=== PATIENT | female | born 1955 | race Caucasian/White ===

== ENCOUNTER 2016-09-26 12:05 | Emergency (ER) | payer OTHER ==
[~2016-09-26] VITALS: Ht 157.5 cm; Wt 52.3 kg
[~2016-09-26 12:05] MED LIST: ALBUTHFA INH; ALPR1TAB2 PO; CETI10TA PO; CITA20TA2 PO; FLONASE; IMI100 PO; OXYC5TAB72 PO; QVAR INH; ZAN150T PO; [UNRECOGNIZED DRUG - CODE] PO
[2016-09-26 12:11] VITALS: BP 122/82; PULSE 77; RESP 18; O2SAT 98
--- NOTE | 2016-09-26 12:31 | ED.REPORT ---
HPI-Back Pain 40 and Over Date of Service Sep 26, 2016 ED Provider: Dr. Solo Pt is a 61 y/o female w/ a hx of chronic back pain secondary to DDD presenting to the ED c/o exacerbation of chronic back pain onset 3 days ago. This pain is the same locations and character of her chronic back pain. Pt denies fever, chills, weakness/numbness/tingling, urinary or bladder incontinence, nausea, vomiting, dysuria. There has been no recent trauma. The patient was previously on oxycodone for her chronic pain and was weaned off of it 2 months ago. Nursing Notes Stated Complaint: BACK PAIN Chief Complaint: Back Pain or Injury Nursing Notes Reviewed: Yes Allergies: Coded Allergies: codeine (Verified Allergy, Mild, N/V, 09/26/16) amoxicillin (Unverified Allergy, Unknown, 09/26/16) amoxicillin trihydrate (Unverified Adverse Reaction, Intermediate, NVD, Abdominal Cramps, Itching, 09/26/16) potassium clavulanate (Unverified Adverse Reaction, Intermediate, NVD, Abdominal Cramps, Itching, 09/26/16) Scheduled Alprazolam-Expunged Drug, Do Not Renew! (Alprazolam-Expunged Drug, Do Not Renew! ) 1 Mg Tablet 1 MG PO BID Beclomethasone-Expunged Drug, Do Not Renew! (Renl-79-Fmsnbpar Drug, Do Not Renew !) 40 Mcg Puff 2 PUFF INH BID SHAKE WELL*RINSE MOUTH AFTER USE* Cetirizine-Expunged Drug, Do Not Renew! (Cetirizine-Expunged Drug, Do Not Renew! ) 10 Mg Tablet 1 TAB PO DAILY Citalopram-Expunged Drug, Do Not Renew! (Citalopram-Expunged Drug, Do Not Renew! ) 20 Mg Tablet 40 MG PO DAILY Fluticasone-Expunged Drug, Do Not Renew! (Flonase-Expunged Drug, Do Not Renew!) 120 Sprays/16 Gm Aero 2 SPR NA DAILY IN EACH NOSTRIL Propranolol-Expunged Drug, Do Not Renew! (Propranolol [place]-Expunged Drug, Do Not Renew!) 80 Mg Capcr 80 MG PO DAILY Ranitidine 150 MG Tablet (Zantac 150 MG Tablet) 150 Mg Tab 1 TAB PO BID Sumatriptan-Expunged Drug, Do Not Renew! (Imitrex-Expunged Drug, Do Not Renew!) 100 Mg Tab 100 MG PO UD Scheduled PRN Albuterol-Expunged Drug, Do Not Renew! (Albuterol-Expunged Drug, Do Not Renew!) 90 Mcg/Puff Hfa.aer.ad 2 PUFF INH Q4-6H PRN PRN For Wheezing or Shortness of Breath Cyclobenzaprine (Cyclobenzaprine) 5 Mg Tablet 5 MG PO HS PRN PRN Spasm Ibuprofen (Ibuprofen) 800 Mg Tablet 800 MG PO TID PRN PRN For Pain oxyCODONE-Expunged, Do Not Renew! (oxyCODONE-Expunged, Do Not Renew!) 5 Mg Tablet 5-10 MG PO Q8 PRN PRN General Time Seen by MD: 12:30 Chief Complaint Back pain Hx Obtained From: Patient Arrived By: Walk-in Sudden in Onset?: No Onset Occurred: 3 days ago Symptom Duration: Since onset Location: : Perispinal lumbar Quality: Painful Severity: Current: Moderate Severity: Maximum: Moderate Recent Healthcare: Previous diagnosis Similar Sx Previous: Yes Past Medical History Past Medical History Chronic back pain secondary to DDD Hypertension COPD Asthma GERD Arthritis DM Depression Anxiety Past Surgical History Appendectomy Hysterectomy Smoking History Current Every Day Smoker, Light Tobacco Smoker Social History Alcohol Use: "Social" Drug Use: THC Ambulatory Status Independent Review of Systems Constitutional: Denies: Chills, Fever GI: Denies: Abdominal pain, Nausea, Vomiting Female: Denies: Dysuria, Flank pain Musculoskeletal: Reports: Back pain, Lumbar pain Neurologic: Denies: Bladder dysfunction, Bowel dysfunction, Numbness, Weakness Complete sys rev & neg: except as marked. Physical Exam Initial Vital Signs Vital Signs (First) Date Time Temp Pulse Resp B/P Pulse Ox O2 Delivery O2 Flow Rate FiO2 09/26/16 12:11 36.4 77 18 122/82 98 Room Air Initial VS: Reviewed, Vital signs normal Head / Eyes: Atraumatic, Normocephalic ENT: Mucous membranes moist, Conjunctiva normal, No scleral icterus Neck: Supple, Full range of motion Extremities: Vascular intact, Neuro intact, No swelling Skin: Warm, Dry, No cyanosis Psychiatric: Mood/affect normal, Behavior normal, Normal thought content General/Constitutional: Awake, Alert, No acute distress, Cooperative, Not toxic appearing Respiratory / Chest: Breath sounds NL, Breath sounds = bilat, No respiratory distress, No rales, No rhonchi, No wheezing Cardiovascular: Heart rate NL, Regular rhythm, Heart sounds NL, No murmurs Abdomen: Atraumatic, Soft, Non-tender Back: No CVA tenderness Diffuse lumbar back tenderness Neurologic: Oriented X3, Speech NL, No motor deficits, No sensory deficits Interpretation & Diagnostics Lab Results Interpretation Test 09/26/16 12:35 Hold Urine Received (Received) Re-Eval/Medical Decision Med Decision/Clinical Course 61-year-old female history of chronic low back pain presenting with an acute exacerbation of her typical chronic low back pain. No red flag symptoms. This is typical of her chronic exacerbations. She denies any recent trauma. She denies any infectious symptoms. Her urine is negative for infection. Her neurological exam is normal. She has diffuse low back tenderness. She was given Toradol with improvement in her symptoms. She is discharged with NSAIDs and muscle relaxers when necessary. Follow up with primary doctor. Return precautions given. Re-Evaluation/Progress : Time of Eval: 12:52 Re-Evaluation/Progress Note: Pt rechecked. Informed pt of plan for discharge. Pt understands and agrees with plan for discharge. F/U instructions and RTER warnings given. All questions addressed. Counseled Regarding: Diagnosis, Need for follow-up, When/why to return to ED Discharge & Departure Impression: Primary Impression: Exacerbation of chronic back pain Disposition: Home Discharge Condition All VS Reviewed: Yes Condition: Improved Patient Instructions: Acute Low Back Pain (ED) Additional Instructions: The urine showed no sign of infection. Take Ibuprofen 800 mg every 8 hours as needed for pain and cyclobenzaprine as directed for spasming pain. Return to the emergency department if you experience bowel or bladder incontinence, numbness/weakness/tingling of your legs, fever, persistent vomiting, severe abdominal pain, or for other concerning symptoms. Follow-up with your primary care doctor to discuss chronic pain management. Referrals: Mary Friedman PA-C (PCP) Scribe Attestation Portions of this note were transcribed by Alfredito Cuevas. I, Dr. Solo personally performed the history, physical exam and medical decision-making; I reviewed and confirmed the accuracy of the information in the transcribed note. copies to: Mary Friedman PA-C, Ben M MD Sep 26, 2016 12:31 ALFREDITO CUEVAS Sep 26, 2016 12:47
[2016-09-26] MEDS ORDERED: CYCL5TAB PO (12:48)
[2016-09-26] MEDS ORDERED: IBUP800T28 PO (12:48)
[2016-09-26 13:28] VITALS: BP 139/85; PULSE 72; RESP 20; O2SAT 100
== END 2016-09-26 13:28 | disposition home or self-care (01) ==
LOC: SED 12:05
DX: M54.5 Low back pain (principal); I10 Essential (primary) hypertension; J45.909 Unspecified asthma, uncomplicated; K21.9 Gastro-esophageal reflux disease without esophagitis; M51.36 Other intervertebral disc degeneration, lumbar region; E11.9 Type 2 diabetes mellitus without complications; F12.10 Cannabis abuse, uncomplicated; F17.200 Nicotine dependence, unspecified, uncomplicated; Z90.89 Acquired absence of other organs; Z90.710 Acquired absence of both cervix and uterus; Z79.51 Long term (current) use of inhaled steroids; Z88.5 Allergy status to narcotic agent; Z88.0 Allergy status to penicillin
CPT/HCPCS: 96372; 99284; J1885

== ENCOUNTER 2016-10-26 09:14 | Inpatient (IN) | payer OTHER, MEDICAID ==
[2016-10-26] VITALS (7 sets, daily range): BP systolic 91–153; BP diastolic 55–86; PULSE 77–115; RESP 20–24; O2SAT 94–100
[~2016-10-26] VITALS: Ht 162.6 cm; Wt 54.1 kg
[~2016-10-26 09:14] MED LIST changes: +CYCL5TAB PO; +IBUP800T28 PO
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
[2016-10-26 10:22] LABS: BASOPHILS % (AUTO) 0.6 % (0-3); EOSINOPHILS % (AUTO) 1.1 % (0-5); MONOCYTES % (AUTO) 9.4 % (4-12); Mean Corpuscular Hemoglobin 29.6 pg (27.0-35.0); Mean Corpuscular Volume 81.1 fL (81-100); Platelet Count 234 bil/L (150-400)
[2016-10-26] MEDS ORDERED: Propranolol LA 80 mg ER24 Capsule PO ONE (10:35)
--- NOTE | 2016-10-26 11:42 | DRSVH ---
PROCEDURE: X-RAY CHEST ONE VIEW, PORTABLE ([id number]) INDICATIONS: smoker, severe hyponatremia TECHNIQUE: One view of the chest was acquired. COMPARISON: [facility], CR, XR CHEST 2VW, 12/24/2014, 12:17. FINDINGS: Surgical changes and devices: None. Lungs and pleura: No pleural effusions or pneumothorax. There is hyperinflation of the lungs with f lattening of the hemidiaphragms compatible with COPD. Lungs are clear without acute consolidation. Mediastinum: Mediastinal contours appear normal. Heart size is normal. Bones and chest wall: No suspicious bony lesions. Overlying soft tissues appear unremarkable. IMPRESSION: 1. Findings compatible with COPD without definite acute changes. Dictated by: Richard Fleming M.D. on 10/26/2016 at 11:39 Approved by: Richard Fleming M.D. on 10/26/2016 at 11:41
[2016-10-26 11:43] LABS: APPEARANCE,URINE HAZY (CLEAR,HAZY); COLOR,URINE YELLOW (YELLOW); OCCULT BLOOD,URINE NEGATIVE (NEGATIVE); UROBILINOGEN,URINE NORMAL (NORMAL)
[2016-10-26] MEDS ORDERED: 0.9% Sodium Chloride 1,000 ML IV SCH ×2 (12:07→12:55)
[2016-10-26] MEDS ORDERED: Ondansetron 2 mg/mL 2 mL Inj IVPUSH PRN (12:10)
[2016-10-26] MEDS ORDERED: Polyethylene Glycol (PEG) 17 Gm Powder PO PRN (12:10)
[2016-10-26] MEDS ORDERED: Alum-Mag Hydrox-Simeth 30 mL Suspension PO PRN (12:10)
[2016-10-26] MEDS ORDERED: 0.9% Sodium Chloride 1,000 ML IV ONE (12:55)
[2016-10-26] MEDS ORDERED: ALBU8.5H2 INHALATION (13:58)
[2016-10-26] MEDS ORDERED: BECL8.7A6 INHALATION (13:59)
[2016-10-26] MEDS ORDERED: CITA40TA13 PO (14:00)
[2016-10-26] MEDS ORDERED: CETI-343 PO (14:00)
[2016-10-26] MEDS ORDERED: RANI150T11 PO (14:01)
[2016-10-26] MEDS ORDERED: FLUT16SP NS (14:01)
[2016-10-26] MEDS ORDERED: IMI100 PO (14:02)
--- NOTE | 2016-10-26 14:06 | CONS ---
[address] [address] CONSULTATION REPORT PATIENT: VICTORINO DIAMOND : 1955 MR#: [id number] ADMIT: 10/26/2016 JOB ID: [id number] DATE OF SERVICE: HISTORY: The patient is a 63-year-old white female, who was admitted to [facility] via the emergency department for suicidal ideation. During her evaluation, she was found to have a sodium of 114 and renal consultation is being sought for further evaluation of her hyponatremia. The patient has an extensive psychiatric history and has not been on any of her psychiatric medications for about a week. She states that she has been drinking at least a six-pack of beer a day and has also had very little to eat. She complains of thirst but denies any nausea, vomiting, or diarrhea. I do need to add that she is somewhat of an inconsistent historian. She denies use of any nonsteroidal anti-inflammatories and denies any current history of any headache, visual disturbances, or shortness of breath. She denies any chest pain, but states that she does have some cough and wheezing secondary to COPD. She also relates a history of hepatitis C but has not been treated for this. She has not taken any nonsteroidals recently and states that she is not on any diuretics. There is no history of any skin rashes or arthralgias. In the emergency department, her sodium was 114, urine sodium was 23 with urine osmolarity of 185. As noted above, her history and some of her information is not consistent with what is in the patient's chart. She states that she has a history of diabetes but is unsure as to whether she takes any medication for this. I do not see any diabetic medications in her medication list. She denies a history of any prior renal problems, but when questioned, she states that she has had hematuria and proteinuria. Her urinalysis did not support this. She denies any history of any frequent urinary tract infections or renal lithiasis. As noted above, she has a history of hepatitis C but this has not been treated. There is no history of any rheumatoid arthritis or lupus. She does state that she does have hypertension, and I see were she has, in the past, been on propranolol. PAST MEDICAL HISTORY: Significant for extensive psychiatric history and current suicidal ideations, hypertension, COPD, GERD. However, she denies taking any proton pump inhibitors, osteoarthritis, anxiety, depression, and hepatitis C. There is a questionable history of diabetes, but she states that she does not take any medication for this, and in the emergency department, her glucose was 82. PAST SURGICAL HISTORY: Significant for an appendectomy, hysterectomy, and for what sounds like a lysis of adhesions. ALLERGIES: She states that she is allergic to: 1. CODEINE. 2. AMOXICILLIN. 3. AUGMENTIN. SOCIAL HISTORY: She smokes less than a pack a day of cigarettes and states that she drinks a six-pack of beer a day. She states she does not drink any hard liquor or take any drugs or marijuana. FAMILY HISTORY: Remarkable for diabetes, hypertension, coronary artery disease, and stroke. MEDICATIONS: At time of my evaluation include alprazolam, Qvar, cetirizine, citalopram, Flonase nasal spray, propranolol, ranitidine, and sumatriptan as needed. As noted above she has not taken any of these medications for at least a week. REVIEW OF SYSTEMS: As detailed above in the history of present illness. PHYSICAL EXAMINATION: Revealed a thin, somewhat ill-appearing, 61-year-old white female, who was awake and alert and able to answer simple questions, though she gave somewhat inconsistent answers. Her blood pressure was 153/80 with a pulse rate of 115. HEENT examination is remarkable for bitemporal wasting, and dry mucous membranes. Sclerae, cornea, conjunctivae, pupils, and extraocular muscles were within normal limits. Neck is supple without adenopathy, thyromegaly, or jugular venous distention. Lungs are clear to auscultation. Heart is regular and rhythmical with a soft systolic murmur. Abdomen is soft, without any tenderness, rebound, guarding, masses or hepatosplenomegaly. Extremities do not show any evidence of any clubbing, cyanosis, or edema. Skin turgor is diminished and there is no evidence of any rashes. I did not appreciate any joint effusions or joint erythema. LABORATORY EXAMINATION: This morning, her white count is 8.3, hemoglobin 13.8, hematocrit 37.8. Red cell indices, platelet count and differential were normal. Her sodium is 114, potassium 4.4, chloride of 77, bicarbonate 19. BUN and creatinine were 6 and 0.49 respectively. Liver function studies were remarkable for a slightly elevated ALT at 51 and her glucose is 82. TSH is 2.61. Urinalysis was remarkable for specific gravity 1.010, pH was 6. Tests for ketones were positive. However tests for protein, glucose, and blood were negative. Microscopic was unremarkable. Her urine sodium was 23 with urine osmolarity of 185. IMPRESSION: 1. Dehydration. 2. Hyponatremia secondary to number one. 3. Ketoacidosis secondary to starvation and possible alcoholic ketoacidosis. 4. Hypertension with hypertensive heart disease. RECOMMENDATION: I would recommend starting her on normal saline at 100 mL/h, and continue to monitor her electrolytes. In light of her recent heavy ethanol use, I would strongly recommend CIWA protocol and closely follow her potassium, magnesium, and phosphorus. I would also like to get an echocardiogram. In light of her hypertension and history of use of beta blockers, I would recommend labetalol mg twice a day to start off Once again, I would like to thank you for allowing me to participate in the care of this most pleasant and interesting patient. I will be following her closely with you.
[2016-10-26] MEDS: 0.9% Sodium Chloride 1,000 ML IV SCH (14:40)
[2016-10-26] MEDS: HYDROcodone-APAP 5-325 mg Tablet PO PRN ×3 (14:42→21:11)
[2016-10-26] MEDS ORDERED: Albuterol 2.5 mg/3 mL Inhalation Solution NEB PRN (15:40)
--- NOTE | 2016-10-26 16:44 | PCM.HPMED ---
Subjective Date of Service Oct 26, 2016 Primary Provider: Admitting Physician: Sidney Pang MD Primary Care Physician: Caroline Marshall MD Attending Physician: Sidney Pang MD Chief Complaint: Suicidal ideation History of Present Illness: Pt is a 61-year-old female with a medical history significant for anxiety/ depression, history of opioid dependence, untreated hepatitis C, COPD, and diabetes type II the ED with the thought of self-harm. Per patient, she states wanting to jump off the bridge due to increased stressor at what sounds like her assisted since yesterday. She denies overdosing on any of her medication, however does states that she take double the amount of an unknown sleeping medication. Patient has hx of one suicidal attempt by on trazodone over 20 years ago. Patient additionally drinks 5-6 beers daily for the past +6 months. Patient states that she has started drinking about 6 months ago after she was weaned off of her opioids. Patient reports that she has not been taking her antidepressive medication for the past week, unable to refill. She endorses that she has been feeling significantly depressed, low appetite, poor by mouth intake. On interview, patient also reports some mild bilateral headache, dizziness, nausea, and palpitation. No chest pain, shortness of breath or abdominal pain however. Interestingly, patient reported increasing thirst on review of system. In the ED, patient found to have critical labs sodium of 114 with random urine 23 and urine osmole and 185. Nephrology was consulted, and recommend normal saline at 100 mL an hour for dehydration. Patient admitted on the floor for suicidal ideation and hyponatremia, need close close monitoring. Review of Systems: A comprehensive review of systems was conducted with the patient and found to be negative except as above in the History of Present Illness. Allergies Coded Allergies: codeine (Verified Allergy, Mild, N/V, 09/26/16) amoxicillin (Unverified Allergy, Unknown, 09/26/16) amoxicillin trihydrate (Unverified Adverse Reaction, Intermediate, NVD, Abdominal Cramps, Itching, 09/26/16) potassium clavulanate (Unverified Adverse Reaction, Intermediate, NVD, Abdominal Cramps, Itching, 09/26/16) Home Medications Albuterol HFA 2 puffs every 4 hours when necessary Qvar 8.7 g 2 puffs twice a day Cetirizine 10 mg daily Citalopram 40 mg daily Cyclobenzaprine 5 mg at bedtime Fluticasone 16 g, to spray nasal cannula Ranitidine 150 mg by mouth twice a day Sumatriptan 100 mg daily PMH Severe COPD Nicotine dependent, long-term smoker Chronic malnutrition and cachexia secondary to Hepatitis C genotype 1A, untreated Dyslipidemia Prediabetes Osteoporosis History of bowel obstruction Benign essential tremor History of opioid dependence Depression/anxiety Surgical History KENDY, BSO for DU B Laparotomy with lysis of dictation Appendectomy Family History Family history of coronary artery disease Father with history of embolic stroke Mother with a history of COPD and Parkinson's disease Social History Hx Alcohol Use: Yes (last drink 10/25/16) Alcoholic Drinks Per Day: 6-8 drinks per week Hx Substance Use: Yes (rare marijuana use) Hx Tobacco Use: Yes (1/2 pack daily) Smoking Status: Current Every Day Smoker Exam Vital Signs Vital Sign - Last Date Time Temp Pulse Resp B/P Pulse Ox O2 Delivery O2 Flow Rate FiO2 10/26/16 14:11 81 10/26/16 14:10 37.0 24 153/86 98 Room Air Exam General: No acute distress, appropriately interactive, repetitive protrusion ruling of tongue with sucking movement of the lips HEENT: Normocephalic, atraumatic. PERRLA, EOMI, Anicteric sclerae, delay skin turgor Neck: No JVD, No bruits. No lymphadenopathy or thyromegaly. Cardiovascular: Regular rate and rhythm with no murmurs, rubs, or gallops appreciated Pulmonary: b/l air sound with no crackles, wheezes, or rhonchi. no use of accessory muscles. Abdomen: +Bowel sound, Soft, nontender, nondistended. Extremities: No clubbing or cyanosis, no lymphedema, no b/l lower leg edema Skin: Normal temperature, turgor, and texture; no rash. No visualized skin ulcer. Neurological: CN II-VII grossly intact, moving equally on all 4 extremities Psychiatric: Normal mood and affect. AOx3 Lab and Diagnostics Result Diagram: 10/26/16 1000 10/26/16 1000 X-Rays, CTs and MRIs INDICATIONS: smoker, severe hyponatremia IMPRESSION: 1. Findings compatible with COPD without definite acute changes. Dictated by: Richard Fleming M.D. on 10/26/2016 at 11:39 Assessment & Plan Patient is a 61-year-old female with a medical history significant for depression and anxiety, COPD, admitted for suicidal ideation and hyponatremia. Suicidal ideation, present on admission, active -Urine tox screen positive for benzos and TCA (possibly false positive) -Provide safe space, sitter in place -Psych consult in the a.m. Dr. Vazquez Hyponatremia, present on admission, active -Serum sodium 114, urine osmole 188, urine sodium 23 -Poor by mouth intake, increase free water -Fluid restriction 1.5L/day -Nephrology Dr. Christopher consulted -Normal saline at 100 mL an hour -BMP every 6 hours -No more than 8 mEq rise in sodium per 24 hour -holding amitriptyline and citalopram as the lower seizure threshold -Limited tree moderate ETOH use disorder -5 drinks daily, last drink (10/25) -CIWA scoring, alcohol withdraw protocol -vitamin supplements daily ordered COPD -Long history of smoking, diaphragmatic flattening -Restart home Qvar twice a day -Restart home albuterol when necessary Hypertension, present on admission, ongoing -Labetalol per nephrology Impaired glucose tolerance -Outpatient A1c 6.2 -diet consistent carb -A1c ordered Depression/anxiety -Holding citalopram Migraine headaches -Holding Imitrex Nicotine dependent -Nicotine patch provided -Need to provide education on smoking cessation DVT prophylaxis Lovenox CODE STATUS presumed full code Patient Status: Patient is admitted under inpatient status with expected length of stay GREATER than 2 midnights due to severity of presenting symptoms, risk of adverse event, and complexity of treatment plan. VTE Prophylaxis: Sub-Q Enoxaparin Resuscitation Status: CPR: Attempt Resuscitation Time spent 70 minutes Attending Statement I interviewed and examined the patient on rounds today. Probable chronic hyponatremia on numerous neuropsych meds but appears to be polydipsic hyponatremia, possibly beer potomania. I agree with the assessment and plan as stated above. Amish Benoit DO Oct 26, 2016 16:44 Sidney Pang MD Oct 27, 2016 07:07
--- NOTE | 2016-10-26 17:59 | NUR ---
Arrived 1333 - Received report from Margaux AMAYA in the ED. The patient is being admitted for hyponatremia and suicidal ideation. 1350 - She arrived from the ED to [facility] 2028 and was settled into the room. Due to her suicidal ideation she had someone with her until a sitter came in at 1500 to be with her. 1435 - Dr. Benoit came to assess her. The patient had been asking for something for her anxiety. Informed the MD about this. 1624 - Spoke to Dr. Benoit again about her anxiety. He said for now he just wanted her to receive her ordered medication and didn't want to order anything else as she seemed to be relaxed and somewhat drowsy. He also wanted her on a 1.5 liter fluid restriction per day as well as change her general diet to a diabetic diet. Care continues.
--- NOTE | 2016-10-26 20:30 | NUR ---
Critical Value Critical Na of [address] Boyd at 2030.
[2016-10-26] MEDS: Fluticasone 100 mCg Inhaler INHALATION SCH (21:34)
--- NOTE | 2016-10-26 22:15 | NUR ---
Behavior/hypotension Pt was looking through her purse for her glasses when sitter noticed pt grabbed drive worker and cigarette out of her bag, stating "I'm gonna go outside and have a cigarette." Discussed hospital smoking policy with pt, who is wearing 21 mg patch currently. Restless in bed, some agitation noted. Reported to provider, who ordered 0.5 mg ativan x1 which was given with effective results. Pt states "I'm finally relaxed for the first time in weeks." Laying in bed with eyes closed at this time. Hypotension also noted with PM vitals, SBP 90's. Labetalol held, per Dr. Boyd notify for MAP 65 or less.
[2016-10-27] VITALS (10 sets, daily range): BP systolic 113–129; BP diastolic 50–85; PULSE 74–95; RESP 16–20; O2SAT 92–98
[2016-10-27] MEDS: 0.9% Sodium Chloride 1,000 ML IV SCH ×3 (00:01→18:17)
[2016-10-27] MEDS ORDERED: Thiamine Inj 100 MG, Folic Acid Inj 1 MG, Magnesium Sulfate 50% Inj 2 GM, Multivitamins... IV ONE ×5 (00:55)
[2016-10-27] MEDS ORDERED: PHENobarbital 65 mg/mL Inj IV ONE (00:55)
[2016-10-27] MEDS: Multivit-Miner-Folic Acid-Iron Tablet PO SCH ×2 (00:55→09:36)
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
--- NOTE | 2016-10-27 04:53 | NUR ---
Labs/CIWA/SI Serum Na trending up, 119 this AM. UE tremor, restlessness, agitation noted at 0045. Orders rec'd for CIWA med protocol and 130 mg phenobarb given. Pt developed 8/10 headache, auditory and visual hallucinations. Lorazepam 2 mg given x1 with effective results. TOYA with loud snoring observed, desats to 87%, 3L O2 with oxymask applied, sats 91-94%. Pt reports plan for suicide using pills at home but denies active suicidal thoughts at this time, sitter at bedside.
[2016-10-27 06:20] LABS: Magnesium 2.3 mg/dL (1.6-2.6)
[2016-10-27] MEDS: Fluticasone 0.05% 15 Spray/2 Gm 16 Gm Nasal Spray NOSTRIL SCH (08:30)
[2016-10-27] MEDS ORDERED: Multivit-Miner-Folic Acid-Iron Tablet PO SCH (08:30)
[2016-10-27] MEDS: Fluticasone 100 mCg Inhaler INHALATION SCH ×2 (09:30→23:33)
--- NOTE | 2016-10-27 17:05 | PCM.PNMED ---
Subjective Date of Service Oct 27, 2016 Subjective 61-year-old woman with alcoholism presents with suicidal gesture and severe hyponatremia She is moderately confused. Affect is bright. Endorses anxiety and tremulousness. Does not voice suicidal or self-harm. Exam Vital Signs Vital Sign - Last Date Time Temp Pulse Resp B/P Pulse Ox O2 Delivery O2 Flow Rate FiO2 10/27/16 14:00 36.3 95 20 124/50 95 Room Air Intake and Output 10/26/16 10/26/16 10/27/16 Cumulative From/Thru 15:00 23:00 07:00 10/26/16 09:20 - 10/27/16 05:30 Intake Total 516 ml 2333 ml 2849 ml Output Total 325 ml 500 ml 825 ml Balance 191 ml 1833 ml 2024 ml Intake Oral 358 ml 300 ml 658 ml IV Total 158 ml 2033 ml 2191 ml Output Urine Total 325 ml 500 ml 825 ml # Bowel Movements 0 0 Exam General: Slightly disheveled, tremulous, impulsive, no acute distress HEENT: sclerae anicteric, oral mucosa moist Neck: no JVD Chest: clear to auscultation Cardiac: S1S2, no murmur Abdomen: BS normal, non-tender Extremities: No pitting edema Neuro: Alert but not oriented, cranial nerves symmetric, motor strength, moderate tremor Lab and Diagnostics Result Diagram: 10/26/16 1000 10/27/16 0821 X-Rays, CTs and MRIs INDICATIONS: smoker, severe hyponatremia IMPRESSION: 1. Findings compatible with COPD without definite acute changes. Dictated by: Richard Fleming M.D. on 10/26/2016 at 11:39 Assessment & Plan Patient is a 61-year-old female with a medical history significant for depression and anxiety, COPD, admitted for suicidal ideation and hyponatremia. Suicidal ideation, present on admission, active -Urine tox screen positive for benzos and TCA (possibly false positive) -Provide safe space, sitter in place -Psych consult Hyponatremia, present on admission, active. Euvolemic versus hypovolemic. Possibly beer poto marita. -Serum sodium 114, urine osmole 188, urine sodium 23 -Nephrology Dr. Christopher consulted - Discontinue IV normal saline after 24 hours -No more than 8 mEq rise in sodium per 24 hour; transitioned to oral Fluid restriction 1.5L/day - Repeat BMP in a.m. Alcohol withdrawal acute, ETOH abuse chronic, present on admission, active. Clinical signs of active alcohol withdrawal on day 1 of hospitalization. She reports 5 drinks daily, last drink (10/25) - Continue with CIWA scoring, alcohol withdraw protocol -vitamin supplements daily ordered -holding amitriptyline and citalopram as the lower seizure threshold COPD -Long history of smoking, diaphragmatic flattening -Restart home Qvar twice a day -Restart home albuterol when necessary Hypertension, present on admission, ongoing -Labetalol prn Impaired glucose tolerance -Outpatient A1c 6.2 -diet consistent carb -A1c ordered Depression/anxiety -Holding citalopram Migraine headaches -Holding Imitrex Nicotine dependent -Nicotine patch provided -Need to provide education on smoking cessation DVT prophylaxis Lovenox CODE STATUS presumed full code Patient Status: Patient is admitted under inpatient status with expected length of stay GREATER than 2 midnights due to severity of presenting symptoms, risk of adverse event, and complexity of treatment plan. VTE Prophylaxis: Sub-Q Enoxaparin Resuscitation Status: CPR: Attempt Resuscitation Time spent 35 minutes Sidney Pang MD Oct 27, 2016 17:05
--- NOTE | 2016-10-27 18:43 | NUR ---
Mentation Pt's mentation appearing to fluctuate. She was oriented to place and knew she was in the hospital in [place] and then shortly after she believed she was in her house and asked staff "Did you shut the garage door when you came up?" She was anxious and impulsive at times and repeatedly tried to "go outside to smoke" despite being told that she couldn't. Intermittently restless and otherwise slept on and off.
[2016-10-28] VITALS (8 sets, daily range): BP systolic 121–129; BP diastolic 73–84; PULSE 85–97; RESP 2–19; O2SAT 95–99
--- NOTE | 2016-10-28 05:55 | NUR ---
Mentation Patient continues to be mildly confused. Able to recall that she is in the hospital and that it is October 2016, but unable to recall the circumstances of her hospitalization or illness. Sleeping through most of the shift, rouses easily for care. Frequent requests for cigarettes when awakened for care.
--- NOTE | 2016-10-28 06:37 | NUR ---
IV Patient found to have pulled her IV in the morning. Patient stated "I didn't know what it was for." New IV started in left forearm.
[2016-10-28] MEDS: Fluticasone 100 mCg Inhaler INHALATION SCH ×2 (08:40→19:51)
[2016-10-28] MEDS: Fluticasone 0.05% 15 Spray/2 Gm 16 Gm Nasal Spray NOSTRIL SCH (08:41)
[2016-10-28] MEDS: Multivit-Miner-Folic Acid-Iron Tablet PO SCH (08:42)
--- NOTE | 2016-10-28 12:35 | PCM.PNMED ---
Subjective Date of Service Oct 28, 2016 Subjective Patient is a 61-year-old female with a medical history significant for depression/anxiety, nicotine dependence, and severe COPD presented with severe hyponatremia with suicidal ideation, now in day 2 of alcoholic withdrawal. No overnight event, patient reported sleeping very well. No Ativan was given. Today however, patient reports an increase in her hand tremors, anxiety, depression, and increasing nicotine craving. CIWA score 15. Exam Vital Signs Vital Sign - Last Date Time Temp Pulse Resp B/P Pulse Ox O2 Delivery O2 Flow Rate FiO2 10/28/16 08:26 36.5 89 2 129/84 99 Room Air Intake and Output 10/27/16 10/27/16 10/28/16 Cumulative From/Thru 15:00 23:00 07:00 10/26/16 09:20 - 10/28/16 06:21 Intake Total 1090 ml 280 ml 4219 ml Output Total 2000 ml 2825 ml Balance -910 ml 280 ml 1394 ml Intake Oral 120 ml 250 ml 1028 ml IV Total 970 ml 30 ml 3191 ml Output Urine Total 2000 ml 2825 ml # Voids 2 2 # Bowel Movements 0 Exam General: No acute distress, appropriately interactive HEENT: Normocephalic, atraumatic. PERRLA, EOMI, Anicteric sclerae, moist conjunctivae. Neck: No JVD, No bruits. No lymphadenopathy or thyromegaly. Cardiovascular: Regular rate and rhythm with no murmurs, rubs, or gallops appreciated Pulmonary: b/l air sound with no crackles, wheezes, or rhonchi. no use of accessory muscles. Abdomen: +Bowel sound, Soft, nontender, nondistended. Extremities: No clubbing or cyanosis, no lymphedema, no b/l lower leg edema Skin: Normal temperature, turgor, and texture; no rash. No visualized skin ulcer. Neurological: CN II-VII grossly intact, moving equally on all 4 extremities, increasing in essential tremor Psychiatric: Normal mood and affect. AOx3 IVs and Medications Medications Reviewed: Medications were reviewed in detail Lab and Diagnostics Result Diagram: 10/26/16 1000 10/28/16 0742 X-Rays, CTs and MRIs INDICATIONS: smoker, severe hyponatremia IMPRESSION: 1. Findings compatible with COPD without definite acute changes. Dictated by: Richard Fleming M.D. on 10/26/2016 at 11:39 Assessment & Plan Patient is a 61-year-old female with a medical history significant for depression and anxiety, COPD, admitted for suicidal ideation and hyponatremia. Suicidal ideation, present on admission, active -Urine tox screen positive for benzos and TCA (possibly false positive) -Provide safe space, sitter in place -Psych consult -Consider admission into mental health should patient continue suicidal ideation post EtOH withdrawal Hyponatremia, present on admission, active. Euvolemic versus hypovolemic. Possibly beer poto marita -Serum sodium 114, urine osmole 188, urine sodium 23 -Nephrology Dr. Christopher consulted - Discontinue IV normal saline after 24 hours -No more than 8 mEq rise in sodium per 24 hour; transitioned to oral Fluid restriction 1.5L/day - Repeat BMP in a.m. Alcohol withdrawal acute, ETOH abuse chronic, present on admission, active. Clinical signs of active alcohol withdrawal on day 1 of hospitalization. She reports 5 drinks daily, last drink (10/25) - Continue with CIWA scoring, alcohol withdraw protocol -vitamin supplements daily ordered -holding amitriptyline and citalopram as the lower seizure threshold COPD -Long history of smoking, diaphragmatic flattening -Restart home Qvar twice a day -Restart home albuterol when necessary Hypertension, present on admission, ongoing -Labetalol prn Impaired glucose tolerance -Outpatient A1c 6.2 -diet consistent carb -A1c ordered Depression/anxiety -Holding citalopram Migraine headaches -Holding Imitrex Nicotine dependent -Nicotine patch provided -Need to provide education on smoking cessation DVT prophylaxis Lovenox CODE STATUS presumed full code Disposition: Will likely be here for the next 2-3 days as patient undergoes active alcoholic withdrawal. VTE Prophylaxis: Sub-Q Enoxaparin Resuscitation Status: CPR: Attempt Resuscitation Time spent 35 minutes spent in patient assessment in care coordination including counseling family members at bedside Attending Statement I interviewed and examined the patient on rounds today. I agree with the assessment and plan as stated above. Amish Benoit DO Oct 28, 2016 12:35 Sidney Pang MD Oct 28, 2016 16:45
[2016-10-28] MEDS ORDERED: SPIR25TA3 PO (16:11)
[2016-10-28] MEDS ORDERED: PROP120C2 PO (16:11)
[2016-10-28] MEDS ORDERED: OMEP20CA11 PO (16:12)
[2016-10-28] MEDS ORDERED: HYDR50TA76 PO (16:15)
--- NOTE | 2016-10-28 16:33 | NUR ---
Social Work Note: Initial Assessment Data& Assessment: EMR reviewed. Janeth Pedersen is a 61 year old female admitted on 10/26/2016 for hyponatremia and suicidal ideation. Pt last CIWA was 15 per RN. 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 Pt sees Caroline Marshall MD for primary care. Pt lives in [place] with friends and is independent at baseline with all ADL's and no DME needs. Pt does no have LTC insurance, HH hx, SNF hx, or VA benefits. WOMEN NURSE provided DPOA/AD paperwork to review and complete when possible. No WOMEN NURSE orders for CD assessment or for psychiatric assessment. Psych MD order has been placed, pt has been seen. See Psychiatrist note for mental health assessment. Pt denies any current suicidal ideation stating "i haven't thought about it since I've been here." Pt interested in outpt mental health counseling. WOMEN NURSE to follow up with pt regarding arranging a outpt follow up counseling appointment pending MD order. Discharge Planning checklist packet provided. Pt denies any needs at this time. WOMEN NURSE to continue to follow for MD orders and continue to follow pt as she gets closer to being medically clear for further safety planning. WOMEN NURSE to continue to follow. Plan: Anticipated discharge home via POV when medically ready. Pt states her friend/roommate will transport her home when medically ready. WOMEN NURSE to continue to follow for MD orders and continue to follow pt as she gets closer to being medically clear for further safety planning. WOMEN NURSE to continue to follow. LIA Robles Addendum: 10/28/16 at 1647 by KAM PAINTING Amended: Links added.
[2016-10-29] VITALS (8 sets, daily range): BP systolic 113–132; BP diastolic 67–80; PULSE 65–99; RESP 17–18; O2SAT 95–99
[2016-10-29 05:19] LABS: Magnesium 1.5 mg/dL (1.6-2.6)
--- NOTE | 2016-10-29 06:26 | NUR ---
CIWA/Rest/Mentation Patient CIWA 2 overnight; patient sleeping well without behavioral disturbance. Remains mildly confused but pleasant; able to recall that she is in the hospital and the general time frame. Continue to monitor.
[2016-10-29] MEDS ORDERED: Magnesium Sulf 4 Gm/100 mL H2O 4 GM in IV Premix 1 EACH IV ONE (06:40)
[2016-10-29] MEDS ORDERED: KCl 40 mEq/D5W 500 mL 40 MEQ in IV Premix 1 EACH IV ONE (06:45)
[2016-10-29] MEDS: Fluticasone 100 mCg Inhaler INHALATION SCH ×2 (08:20→22:23)
[2016-10-29] MEDS: Fluticasone 0.05% 15 Spray/2 Gm 16 Gm Nasal Spray NOSTRIL SCH (08:21)
[2016-10-29] MEDS: Multivit-Miner-Folic Acid-Iron Tablet PO SCH (08:22)
--- NOTE | 2016-10-29 14:16 | PCM.PNMED ---
Subjective Date of Service Oct 29, 2016 Subjective Patient is a 61-year-old female with a medical history significant for depression and anxiety admitted for suicidal ideation, EtOH withdrawal, and hyponatremia. Overnight nursing reports the patient pulled out her IV, mild agitation. CIWA score is 2. Patient did not receive any lorazepam. Today, patient reports feeling better, decreased tremor, increase voluntary control with the gait stability. Denies any visual or auditory hallucination. Patient further denies any thought of self-harm today. She further states the desire to abstain from EtOH, going back to her practices. Lab BMP showed Na 125, slightly down from yesterday of 129. Patient reports that she has been drinking about 3-4 cups 16 fluid ounce water yesterday. Noncompliant to her 1.5 L fluid restriction. Exam Vital Signs Vital Sign - Last Date Time Temp Pulse Resp B/P Pulse Ox O2 Delivery O2 Flow Rate FiO2 10/29/16 13:01 36.7 91 18 113/67 99 Room Air Intake and Output 10/28/16 10/28/16 10/29/16 Cumulative From/Thru 15:00 23:00 07:00 10/26/16 09:20 - 10/29/16 05:55 Intake Total 610 ml 210 ml 5039 ml Output Total 700 ml 500 ml 4025 ml Balance -90 ml -290 ml 1014 ml Intake Oral 600 ml 200 ml 1828 ml IV Total 10 ml 10 ml 3211 ml Output Urine Total 700 ml 500 ml 4025 ml # Voids 2 # Bowel Movements 1 1 Exam General: No acute distress, appropriately interactive HEENT: Normocephalic, atraumatic. PERRLA, EOMI, Anicteric sclerae, moist conjunctivae. Neck: No JVD, No bruits. No lymphadenopathy or thyromegaly. Cardiovascular: Regular rate and rhythm with no murmurs, rubs, or gallops appreciated Pulmonary: b/l air sound with no crackles, wheezes, or rhonchi. no use of accessory muscles. Abdomen: +Bowel sound, Soft, nontender, nondistended. Extremities: No clubbing or cyanosis, no lymphedema, no b/l lower leg edema Skin: Normal temperature, turgor, and texture; no rash. No visualized skin ulcer. Neurological: CN II-VII grossly intact, moving equally on all 4 extremities, no essential tremor noted Psychiatric: Normal mood and affect. AOx3 Lab and Diagnostics Result Diagram: 10/26/16 1000 10/29/16 0445 X-Rays, CTs and MRIs INDICATIONS: smoker, severe hyponatremia IMPRESSION: 1. Findings compatible with COPD without definite acute changes. Dictated by: Richard Fleming M.D. on 10/26/2016 at 11:39 Assessment & Plan Patient is a 61-year-old female with a medical history significant for depression and anxiety, COPD, admitted for suicidal ideation and hyponatremia. Suicidal ideation, present on admission, active -Urine tox screen positive for benzos and TCA (possibly false positive) -Provide safe space, sitter in place -Psych consult -Consider admission into mental health should patient continue suicidal ideation post EtOH withdrawal Hyponatremia, present on admission, active. Euvolemic versus hypovolemic. Possibly beer poto marita -Serum sodium 114, urine osmole 188, urine sodium 23 -Nephrology Dr. Christopher consulted - Discontinue IV normal saline after 24 hours -Strict fluid restriction of 1.5 L daily - Repeat BMP in a.m. Alcohol withdrawal acute, ETOH abuse chronic, present on admission, active. Clinical signs of active alcohol withdrawal on day 1 of hospitalization. She reports 5 drinks daily, last drink (10/25) - Continue with CIWA scoring, alcohol withdraw protocol -vitamin supplements daily ordered -holding amitriptyline and citalopram as the lower seizure threshold COPD -Long history of smoking, diaphragmatic flattening -Restart home Qvar twice a day -Restart home albuterol when necessary Hypertension, present on admission, ongoing -Labetalol prn Impaired glucose tolerance -Outpatient A1c 6.2 -diet consistent carb -A1c ordered Depression/anxiety -Holding citalopram Migraine headaches -Holding Imitrex Nicotine dependent -Nicotine patch provided -Need to provide education on smoking cessation DVT prophylaxis Lovenox CODE STATUS presumed full code Disposition: Likely discharged tomorrow. VTE Prophylaxis: Sub-Q Enoxaparin Resuscitation Status: CPR: Attempt Resuscitation Time spent 30 minutes Attending Statement I interviewed and examined the patient on rounds today. Alcohol withdrawal is improving. Hyponatremia is persistent. I agree with the assessment and plan as stated above. Amish Benoit DO Oct 29, 2016 14:16 Sidney Pang MD Oct 29, 2016 17:48
[2016-10-29] MEDS: Potassium Chloride 20 mEq SR Tablet PO SCH ×2 (15:11→22:22)
--- NOTE | 2016-10-29 17:47 | NUR ---
Anxiety/Boyfriend visitation Pt had male visitor this afternoon. Pt became very anxious, including rapid thoughts, increased pulse, stated her head felt all fuzzy. Visitor was her current boyfriend who she states "he is very manipulative" pt stated that she does not want him to visit with her again. Pt is concerned as she has been living with him and does not have anyplace to go when she is discharged. Pt administered 5mg PO of Valium for her anxiety. is aware.
[2016-10-30 03:02] VITALS: BP 109/74; PULSE 65; RESP 17; O2SAT 97
--- NOTE | 2016-10-30 05:52 | NUR ---
Mentation [facility] 1 this shift, pleasant, a/o (x4) able to identify self, date, time and reason for admission. Denies any thoughts of further suicide ideation, self harm or plan - sitter at bedside. States "I have too many grandchildren to enjoy". Indicates anxiety is mostly associated with living arrangements, and partner. Rested for extended period. Care conference planned for today, pt. informed. VSS. Tele d/c.
--- NOTE | 2016-10-30 07:34 | PCM.DIMED ---
Discharge Instructions Date of Service Oct 30, 2016 Dates of Hospitalization Oct 26, 2016 at 11:53 Discharge Diagnosis Discharge Diagnosis Hyponatremia; Suicide gesture; Depression and anxiety; Alcohol withdrawal Diet Discharge Diet: Other (reduce your daily water and juice and coffee intake to no more than 4 full glasses per day. More fluids than this amount will cause your sodium level to drop which may be a risk for seizures.) Activity Discharge Activity: No restrictions Patient Instructions Patient Instructions We encourage you to continue with her efforts to stop alcohol drinking. Follow-up plan Psychiatry assessment regarding depression and anxiety and suicidality prior to discharge. To plan follow-up as outpatient. Follow-up Provider: Caroline Marshall MD Follow-up with PCP in: 1 week Sidney Pang MD Oct 30, 2016 07:34
--- NOTE | 2016-10-30 07:40 | PCM.DC.MED ---
Discharge Summary Date of Service Oct 30, 2016 Dates of Hospitalization Date of Hospital Admission Oct 26, 2016 at 11:53 Date of Discharge: Oct 30, 2016 Providers: Admitting Physician: Sidney Pang MD Primary Care Physician: Caroline Marshall MD Attending Physician: Sidney Pang MD Diagnosis at Time of Discharge Diagnosis at Time of Discharge Hyponatremia; Suicide gesture; Depression and anxiety; Alcohol withdrawal Consultations Psychiatry Dr. Jluis Bonilla DSM-IV DIAGNOSES: AXIS I: 1. Major depression, recurrent, by history with psychotic features. 2. Anxiety disorder by history. 3. Rule out alcohol use disorder. 4. Marijuana use disorder. AXIS II: Deferred. AXIS III: See past medical history. AXIS IV: Confusion possibly secondary to hyponatremia, difficulties with housing and support. AXIS V: Global Assessment of Functionin. PLAN: 1. Medical: To continue to stabilize patient and hyponatremia. 2. While the patient is hypernatremic would not restart citalopram or Lexapro given the possibility of exacerbating her hyponatremia. 3. Would continue one-to-one given patient's reports of suicidal ideation. 4. When hyponatremia has stabilized would consider switching to escitalopram 20 mg daily as an equivalent to the prior escitalopram 40 mg daily. As there is likelihood of reduced side effects. 5. If the patient remains suicidal following normalization of sodium, the patient may be appropriate for inpatient psychiatric hospitalization. If this is determined to be the case, social work would need to have the patient approved for inpatient hospitalization and consult with the psychiatrist prior to transfer. 6. Should the patient request discharge and is assessed as being a risk of self harm, she should be referred to the [facility]. 7. Please consult psychiatry with any further questions. Jluis Bonilla MD 10/26/16 2152 . Procedures XRay, CTs & MRIs INDICATIONS: smoker, severe hyponatremia IMPRESSION: 1. Findings compatible with COPD without definite acute changes. Dictated by: Richard Fleming M.D. on 10/26/2016 at 11:39 Brief History History of Present Illness (per admission note): Pt is a 61-year-old female with a medical history significant for anxiety/ depression, history of opioid dependence, untreated hepatitis C, COPD, and diabetes type II the ED with the thought of self-harm. Per patient, she states wanting to jump off the bridge due to increased stressor at what sounds like her [place] [facility] since yesterday. She denies overdosing on any of her medication, however does states that she take double the amount of an unknown sleeping medication. Patient has hx of one suicidal attempt by on trazodone over 20 years ago. Patient additionally drinks 5-6 beers daily for the past +6 months. Patient states that she has started drinking about 6 months ago after she was weaned off of her opioids. Patient reports that she has not been taking her antidepressive medication for the past week, unable to refill. She endorses that she has been feeling significantly depressed, low appetite, poor by mouth intake. On interview, patient also reports some mild bilateral headache, dizziness, nausea, and palpitation. No chest pain, shortness of breath or abdominal pain however. Interestingly, patient reported increasing thirst on review of system. In the ED, patient found to have critical labs sodium of 114 with random urine 23 and urine osmole and 185. Nephrology was consulted, and recommend normal saline at 100 mL an hour for dehydration. Patient admitted on the floor for suicidal ideation and hyponatremia, need close close monitoring. Hospital Course #1 Suicidal ideation, present on admission, active -Urine tox screen positive for benzos and TCA (possibly false positive) -Provide safe space, sitter in place - She did not continue to express suicidality -Psych consult for further management #2 Hyponatremia, present on admission, active. Euvolemic versus hypovolemic. Possibly water and beer poto marita. SIADH is ruled out. -Serum sodium 114, urine osmole 188, urine sodium 23 - Sodium was 131 prior to discharge and responded normally to fluid restriction - Patient was counseled to reduce her daily fluid intake #3 Alcohol withdrawal acute, ETOH abuse chronic, present on admission, active. Clinical signs of active alcohol withdrawal on day 1 of hospitalization. She reports 5 drinks daily, last drink (10/25) - Moderate symptoms which resolved prior to discharge - Counseling provided regarding outpatient cessation options Resolved, stable and or chronic problems: #4 COPD -Long history of smoking, diaphragmatic flattening - Continue home medications #5 Hypertension, present on admission, ongoing -Labetalol prn 6 Essential tremor, present on admission, ongoing - Resume propranolol #7 Impaired glucose tolerance - Stable #8 Depression/anxiety -Resume citalopram at time of discharge #9 Migraine headaches - No changes #10 Nicotine dependent -Nicotine patch provided -The patient was counseled by Vince regarding smoking cessation Exam Vital Signs (Last) Date Time Temp Pulse Resp B/P Pulse Ox O2 Delivery O2 Flow Rate FiO2 10/30/16 03:02 36.5 65 17 109/74 97 Room Air Exam General: No acute distress, appropriately interactive HEENT: Normocephalic, atraumatic. Anicteric sclerae, moist conjunctivae. Neck: No JVD, Cardiovascular: Regular rate and rhythm with no murmurs, rubs, or gallops appreciated Pulmonary: b/l air sound with no crackles, wheezes, or rhonchi. Abdomen: nontender, nondistended. Extremities: no b/l lower leg edema Skin: No rash. No visualized skin ulcer. Neurological: CN II-VII grossly intact, moving equally on all 4 extremities, Test 10/26/16 10:00 10/26/16 10:39 10/27/16 05:30 10/29/16 04:45 White Blood Count 8.3th/mm3 (3.8-10.1) Red Blood Count 4.66mil/mm3 (3.90-5.20) Hemoglobin 13.8g/dL (12.0-15.6) Hematocrit 37.8% (35.0-46.0) Mean Corpuscular Volume 81.1fL (81-100) Mean Corpuscular Hemoglobin 29.6pg (27.0-35.0) Mean Corpuscular Hemoglobin Concent 36.5% (32.0-37.0) Red Cell Distribution Width 11.3% (12.3-15.4) Platelet Count 234bil/L (150-400) Neutrophils (%) (Auto) 63.0% (40-74) Lymphocytes (%) (Auto) 25.5% (14-46) Monocytes (%) (Auto) 9.4% (4-12) Eosinophils (%) (Auto) 1.1% (0-5) Basophils (%) (Auto) 0.6% (0-3) Phosphorus Level 2.3mg/dL (2.5-4.9) Thyroid Stimulating Hormone (TSH) 2.140uIU/mL (0.450-4.500) Urine Color Yellow (YELLOW) Urine Appearance Hazy (CLEAR,HAZY) Urine pH 6.0 (5.0-8.0) Urine Specific [place] 1.010 (1.003-1.035) Urine Protein Negativemg/dL (NEG,TRACE) Urine Glucose (UA) Negativemg/dL (NEGATIVE) Urine Ketones 80mg/dL (NEGATIVE) Urine Occult Blood Negative (NEGATIVE) Urine Nitrite Negative (NEGATIVE) Urine Bilirubin Negative (NEGATIVE) Urine Urobilinogen Normalmg/dL (NORMAL) Urine Leukocyte Esterase Negative (NEGATIVE) Urine RBC 0-2/hpf (0-2) Urine WBC 0-5/hpf (0-5) Urine Epithelial Cells Many/hpf (NONE-MOD) Urine Crystals None seen (NONE SEEN) Urine Bacteria Few/hpf (NONE-FEW) Urine Hyaline Casts None/lpf (NONE) Urine Granular Casts None seen (NONE SEEN) Urine Waxy Casts None seen (NONE SEEN) Urine Red Blood Cell Casts None seen (NONE SEEN) Urine White Blood Cell Casts None seen (NONE SEEN) Urine Mucus None seen (None Seen) Urine Trichomonas None seen (NONE SEEN) Urine Yeast None (NONE SEEN) Urinalysis Comment None Urine Culture Reflexed Not indicated Urine Osmolality 185mOs/kH2O (250-1200) Urine Random Sodium 23mEq/L Hold Urine Received (Received) Total Bilirubin 0.4mg/dL (0.0-1.2) Aspartate Amino Transf (AST/SGOT) 25U/L (0-50) Alanine Aminotransferase (ALT/SGPT) 34U/L (0-32) Alkaline Phosphatase 68U/L (25-165) Total Protein 5.3g/dL (6.4-8.4) Albumin 3.3g/dL (3.4-5.0) Magnesium Level 1.5mg/dL (1.6-2.6) Test 10/30/16 04:28 Sodium Level 131mEq/L (134-144) Potassium Level 3.9mEq/L (3.5-5.2) Chloride Level 96mEq/L (97-108) Carbon Dioxide Level 20mmol/L (18-29) Blood Urea Nitrogen 5mg/dL (8-27) Creatinine 0.57mg/dL (0.57-1.00) Estimat Glomerular Filtration Rate 155mL/min (>59) Glucose Level 120mg/dL (60-99) Calcium Level 8.7mg/dL (8.5-10.1) Discharge Medications Discharge Medications Beclomethasone Dipropionate (Qvar) 8.7 Gm Aer.w.adap 2 PUFF INHALATION BID ( Reported) Cetirizine HCl (24Hour Allergy) 10 Mg Tablet 10 MG PO DAILY (Reported) Citalopram (Citalopram) 40 Mg Tablet 40 MG PO DAILY (Reported) Fluticasone Propionate (Fluticasone Propionate Nasal) 16 Gm [place].susp 2 SPRAY NS DAILY (Reported) Omeprazole (Omeprazole) 20 Mg Capsule.dr 20 MG PO BID (Reported) Propranolol ER (Propranolol ER) 120 Mg Cap.sa.24h 120 MG PO DAILY (Reported) Ranitidine (Zantac) 150 Mg Tablet 150 MG PO BID (Reported) Spironolactone (Spironolactone) 25 Mg Tablet 25 MG PO DAILY (Reported) Sumatriptan (Imitrex) 100 Mg Tablet 100 MG PO DAILY (Reported) As needed Albuterol HFA (Proair HFA) 8.5 Gm Hfa.aer.ad 2 PUFFS INHALATION Q4H PRN PRN For Shortness of Breath (Reported) Cyclobenzaprine (Cyclobenzaprine) 5 Mg Tablet 5 MG PO HS PRN PRN Spasm Prescribed by: SAI REY Hydroxyzine HCl (HydrOXYzine Hcl) 50 Mg Tablet 50-100 MG PO TID PRN PRN For Anxiety or Agitation (Reported) Followup Plan Disposition: Home with appropriate psychiatry follow-up Follow-up plan Psychiatry assessment regarding depression and anxiety and suicidality prior to discharge. To plan follow-up as outpatient. Discharge Diet: Other (reduce your daily water and juice and coffee intake to no more than 4 full glasses per day. More fluids than this amount will cause your sodium level to drop which may be a risk for seizures.) Discharge Activity: No restrictions Patient Instructions We encourage you to continue with her efforts to stop alcohol drinking. Follow-up Provider: Caroline Marshall MD Follow-up with PCP in: 1 week Time spent 35 minutes copies to: Caroline Marshall MD; Jluis Bonilla MD, Jeffrey W MD Oct 30, 2016 07:40
[2016-10-30 09:24] VITALS: BP 133/84; PULSE 91; O2SAT 99
[2016-10-30] MEDS: Fluticasone 0.05% 15 Spray/2 Gm 16 Gm Nasal Spray NOSTRIL SCH (09:27)
[2016-10-30] MEDS: Fluticasone 100 mCg Inhaler INHALATION SCH (09:27)
[2016-10-30] MEDS: Potassium Chloride 20 mEq SR Tablet PO SCH (09:28)
[2016-10-30] MEDS: Multivit-Miner-Folic Acid-Iron Tablet PO SCH (09:28)
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
--- NOTE | 2016-10-30 11:14 | NUR ---
Discharge Pt discharged to home with transportation via [facility]. Pt was given bus pass by [facility]. Pt's discharge instructions and follow up appointments were reviewed. All questions were answered and pt voiced understanding. Pt's belongings were gathered, including locked items from closet. Pt was escorted off unit to bus stop at [address] by DIAMANTE.
== END 2016-10-30 10:59 | disposition home or self-care (01) | DRG 641 ==
LOC: SED 09:14 → PCC 11:53
PROVIDERS: ADMIT Internal Medicine; ATTEND Internal Medicine
DX: E87.1 Hypo-osmolality and hyponatremia (principal); E86.0 Dehydration; E87.2 Acidosis; E46 Unspecified protein-calorie malnutrition; R64 Cachexia; I11.9 Hypertensive heart disease without heart failure; F11.20 Opioid dependence, uncomplicated; R45.851 Suicidal ideations; F33.9 Major depressive disorder, recurrent, unspecified; F10.239 Alcohol dependence with withdrawal, unspecified; F41.8 Other specified anxiety disorders; M51.36 Other intervertebral disc degeneration, lumbar region; E11.9 Type 2 diabetes mellitus without complications; K21.9 Gastro-esophageal reflux disease without esophagitis; J45.909 Unspecified asthma, uncomplicated; F17.210 Nicotine dependence, cigarettes, uncomplicated; F12.90 Cannabis use, unspecified, uncomplicated; B19.20 Unspecified viral hepatitis C without hepatic coma; Z79.51 Long term (current) use of inhaled steroids; Z68.20 Body mass index [BMI] 20.0-20.9, adult